=== PATIENT | male | born 1960 | race Caucasian/White ===

== ENCOUNTER 2022-06-11 10:05 | Outpatient (CLI) | payer OTHER, SELFPAY ==
[2022-06-11 13:46] LABS: Albumin* 4.3 g/dL (3.3-5.0); Chloride* 106 mmol/L (96-114); Potassium* 4.8 mmol/L (3.6-5.1); Sodium* 143 mmol/L (135-149)
[2022-06-11 13:48] LABS: Creatinine* 0.9 mg/dL (0.5-1.5); Estimated Glomerular Filt Rate 97 ml/min
[2022-06-11 13:49] LABS: Alanine Aminotransferase* 18 U/L (4-50); Alkaline Phosphatase* 64 U/L (40-150); Aspartate Amino Transferase* 23 U/L (12-35); Bilirubin Total* 0.6 mg/dL (0.1-1.5); Blood Urea Nitrogen* 14 mg/dL (7-30); Calcium* 9.8 mg/dL (8.4-10.6); Carbon Dioxide* 28 mmol/L (20-32); Glucose* 87 mg/dL (60-115); Total Protein* 7.1 g/dL (6.0-8.3)
== END 2022-06-11 10:06 | disposition home or self-care (01) ==
PROVIDERS: Visit Provider Dermatology
DX: I10 Essential (primary) hypertension (principal); L40.50 Arthropathic psoriasis, unspecified; L40.9 Psoriasis, unspecified
CPT/HCPCS: 80053; 86480

== ENCOUNTER 2023-05-29 16:35 | Outpatient (CLI) | payer OTHER, SELFPAY | END 2023-05-29 16:36 | disposition home or self-care (01) | PROVIDERS: Visit Provider Dermatology | DX: L40.50 Arthropathic psoriasis, unspecified (principal) | CPT/HCPCS: 85597; 85610; 85613; 85670; 85730; 85732; 86146; 86147; 86480 ==

== ENCOUNTER 2023-10-13 14:30 | Outpatient (RCR) | payer OTHER, SELFPAY ==
[2023-07-17 07:56] LABS: Cardiolipin Antibody IgA 25 APL (<=11); Cardiolipin Antibody IgG >150 GPL (<=14); Cardiolipin Antibody IgM 72 MPL (<=12)
[2023-07-17 15:18] LABS: BILL_DRV Billed; BILL_DRVC Billed; BILL_PNP Billed; BILL_PTTD Billed; BILL_TTR Billed; Platelet Neutralization(PTT-D) Positive (Negative); dRVVT 1:1 Mix 49 sec (33-44); dRVVT Confirmation Positive ratio (Negative); dRVVT Screen 71 sec (33-44)
[2023-07-17 16:02] LABS: Protein C Functional 176 % (83-168); Protein S Functional 94 % (66-143)
[2023-07-17 18:53] LABS: Antithrombin, Enzymatic 112 % (76-128)
[2023-07-17 18:57] LABS: B2Glycoprotein 1, IgG Antibody >150 SGU (<=20); B2Glycoprotein 1, IgM Antibody 115 SMU (<=20)
[2023-07-18 14:01] LABS: PT PCR Specimen Whole Blood; Prothrombin(F2)G20210A Variant Negative
[2023-07-18 21:45] LABS: FACV Specimen Whole Blood; Factor V Leiden (F5) Mutation Negative
[2023-10-08 14:36] LABS: Protein C Functional 155 % (83-168); Protein S Functional 113 % (66-143)
[2023-10-08 20:44] LABS: Antithrombin, Enzymatic 98 % (76-128)
[2023-10-09 07:34] LABS: Cardiolipin Antibody IgA 15 APL (<=11); Cardiolipin Antibody IgG >150 GPL (<=14); Cardiolipin Antibody IgM 61 MPL (<=12)
[2023-10-09 10:27] LABS: B2Glycoprotein 1, IgG Antibody >150 SGU (<=20); B2Glycoprotein 1, IgM Antibody 92 SMU (<=20)
--- NOTE | 2023-10-15 12:19 | ONC.NURNOTE ---
Scrip Clerk recommendation continues to be that patient should be switched to coumadin. Patient was referred by cardiology, so attempted to call them yesterday with no return call. Information was faxed to their office at [phone]. Phone for contact is [phone]. Patient notes that his primary care provider is Dr. Pérez out of [place], phone: [phone]. Nursing coverage asked that information be sent to fax of [phone]. Both faxes were sent through, patient aware that he should expect a phone call from PCP to take over management. We are happy to see patient on an as needed basis in the future.
== END 2024-01-10 23:59 | disposition home or self-care (01) ==
LOC: CCIC 14:30
PROVIDERS: Visit Provider Internal Medicine Hematology & Oncology
DX: R76.0 Raised antibody titer (principal); I48.91 Unspecified atrial fibrillation; Z79.01 Long term (current) use of anticoagulants
CPT/HCPCS: 36415; 81240; 81241; 85300; 85303; 85306; 85520; 85597; 85598; 85610; 85613; 85670; 85730; 85732; 86146; 86147; 99202; 99205; 99214; G0463